=== PATIENT | female | born 1945 | race Caucasian/White ===

== ENCOUNTER 2019-06-17 06:16 | Day surgery (SDC) | payer MEDICARE ==
[~2019-06-17] VITALS: Ht 167.6 cm; Wt 85.9 kg
[2019-06-17] MEDS ORDERED: normal saline 1,000 ML IV SCH (06:45)
[2019-06-17] MEDS ORDERED: diphenhydrAMINE 25mg capsule PO PRN (06:45)
[2019-06-17] MEDS ORDERED: BACL5TAB PO (07:10)
[2019-06-17] MEDS ORDERED: HYDR-4353 PO (07:10)
[2019-06-17] MEDS ORDERED: MULT-1085 PO (07:10)
[2019-06-17] MEDS ORDERED: POTA20TA10 PO (07:10)
[2019-06-17] MEDS ORDERED: GABA-532 PO (07:10)
[2019-06-17] MEDS ORDERED: ASPI-611 PO (07:10)
[2019-06-17] MEDS ORDERED: CITA20TA17 PO (07:10)
[2019-06-17] MEDS ORDERED: FURO-149 PO (07:10)
[2019-06-17] MEDS ORDERED: OCUVITE PO (07:10)
[2019-06-17] MEDS ORDERED: ALPR-624 PO (07:10)
[2019-06-17] MEDS ORDERED: ATOR80TA PO (07:10)
[2019-06-17] MEDS ORDERED: OMEG1CAP13 PO (07:10)
[2019-06-17] MEDS ORDERED: NITR0.4T48 SL (07:10)
[2019-06-17] MEDS ORDERED: fentaNYL/PF 50MCG/1 ML 2ML syringe ONE (07:26)
[2019-06-17] MEDS ORDERED: midazolam 2 mg/2 ml injection ONE (07:26)
[2019-06-17] MEDS ORDERED: iohexol 350MG/ML 100ml bottle IV ONE (07:27)
[2019-06-17] MEDS ORDERED: iohexol 350 MG/ML 50ML vial IV ONE (07:27)
[2019-06-17] MEDS ORDERED: LIDOcaine 1% (10mg/ml)w/preservative injection 20ml MDV ONE (07:27)
[2019-06-17 07:31] LABS: BASOPHILS % (AUTO) 0.4 % (0-1); EOSINOPHILS # (AUTO) 0.1 X10'3 (0-0.9); EOSINOPHILS % (AUTO) 1.9 % (0-6); HEMATOCRIT 31.1 % (35.0-45.0); HEMOGLOBIN 9.7 g/dl (12.0-16.0); LYMPHOCYTES # (AUTO) 0.9 X10'3 (1.1-4.8); LYMPHOCYTES % (AUTO) 18.3 % (21-51); MEAN CORPUSCULAR HEMOGLOBIN 24.8 PG (27.0-31.0); MEAN CORPUSCULAR HGB CONC 31.1 g/dL (33.0-36.5); MEAN CORPUSCULAR VOLUME 79.7 FL (78-98); MEAN PLATELET VOLUME 7.8 FL (7.4-10.4); MONOCYTES # (AUTO) 0.5 X10'3 (0-0.9); NEUTROPHILS # (AUTO) 3.6 X10'3 (1.8-7.7); NEUTROPHILS % (AUTO) 69.4 % (42-75); PLATELET COUNT 242 X10'3 (140-440); RED BLOOD COUNT 3.89 X10'6 (4.20-5.60); RED CELL DISTRIBUTION WIDTH 18.4 % (11.5-14.5); WHITE BLOOD COUNT 5.1 X10'3 (4.5-11.0)
[2019-06-17 07:46] LABS: ANION GAP 8 (8-16); BLOOD UREA NITROGEN 15 MG/DL (7-18); BUN/CREATININE RATIO 17.4 (6.6-38.0); CALCIUM 9.2 MG/DL (8.5-10.1); CHLORIDE 106 MMOL/L (99-107); CREATININE 0.86 MG/DL (0.40-0.90); GLUCOSE 82 MG/DL (70-104); POTASSIUM 4.2 MMOL/L (3.5-5.1); SODIUM 139 MMOL/L (135-145); TOTAL CARBON DIOXIDE 24.8 MMOL/L (24-32); eGFR 65 ML/MIN
[2019-06-17] MEDS ORDERED: iohexol 350 MG/1 ML 200ml bottle ONE (09:08)
[2019-06-17 09:30] VITALS: BP 127/92
[2019-06-17 09:45] VITALS: BP 147/59
[2019-06-17 10:00] VITALS: BP 121/61
[2019-06-17] MEDS ORDERED: normal saline 1000ml 1,000 ML IV SCH (10:00)
[2019-06-17 10:30] VITALS: BP 146/74
[2019-06-17 11:00] VITALS: BP 119/87
[2019-06-17 13:15] VITALS: BP 155/65
== END 2019-06-17 14:00 | disposition home or self-care (01) ==
LOC: SSTAY O 06:16
PROVIDERS: ATTEND Internal Medicine Cardiovascular Disease
DX: I25.118 Atherosclerotic heart disease of native coronary artery with other forms of angina pectoris (principal); E78.5 Hyperlipidemia, unspecified; I10 Essential (primary) hypertension; G47.30 Sleep apnea, unspecified; F32.9 Major depressive disorder, single episode, unspecified; I47.1 Supraventricular tachycardia; Z95.1 Presence of aortocoronary bypass graft; Z79.899 Other long term (current) drug therapy; Z86.19 Personal history of other infectious and parasitic diseases; Z98.890 Other specified postprocedural states; Z90.49 Acquired absence of other specified parts of digestive tract; Z72.89 Other problems related to lifestyle; Z83.3 Family history of diabetes mellitus; Z82.49 Family history of ischemic heart disease and other diseases of the circulatory system
CPT/HCPCS: 36415; 80048; 83735; 85025; 85610; 93005; 93459; 99152; 99153; C1760; C1769; C1894; J1644; J2001; J2250; J3010; J7030; Q0163; Q9967; A4620; A6258

== ENCOUNTER 2019-07-03 09:31 | Day surgery (SDC) | payer MEDICARE ==
[2019-07-03] VITALS (9 sets, daily range): BP systolic 111–166; BP diastolic 55–86
[~2019-07-03] VITALS: Ht 167.6 cm; Wt 84.1 kg
[~2019-07-03 09:31] MED LIST: ALPR-624 PO; ASPI-611 PO; ATOR80TA PO; BACL5TAB PO; CITA20TA17 PO; FURO-149 PO; GABA-532 PO; HYDR-4353 PO; MULT-1085 PO; NITR0.4T48 SL; OCUVITE PO; OMEG1CAP13 PO; POTA20TA10 PO
[2019-07-03] MEDS ORDERED: normal saline 1,000 ML IV SCH (09:55)
[2019-07-03] MEDS ORDERED: diphenhydrAMINE 25mg capsule PO PRN (09:55)
[2019-07-03] MEDS ORDERED: OSC500T PO (10:45)
[2019-07-03] MEDS ORDERED: DOCU-148 PO (10:45)
[2019-07-03 11:01] LABS: BASOPHILS % (AUTO) 0.7 % (0-1); EOSINOPHILS # (AUTO) 0.1 X10'3 (0-0.9); EOSINOPHILS % (AUTO) 3.2 % (0-6); HEMATOCRIT 32.3 % (35.0-45.0); HEMOGLOBIN 10.1 g/dl (12.0-16.0); LYMPHOCYTES # (AUTO) 1.2 X10'3 (1.1-4.8); LYMPHOCYTES % (AUTO) 28.1 % (21-51); MEAN CORPUSCULAR HEMOGLOBIN 24.6 PG (27.0-31.0); MEAN CORPUSCULAR HGB CONC 31.1 g/dL (33.0-36.5); MEAN CORPUSCULAR VOLUME 79.2 FL (78-98); MEAN PLATELET VOLUME 8.1 FL (7.4-10.4); MONOCYTES # (AUTO) 0.4 X10'3 (0-0.9); MONOCYTES % (AUTO) 9.6 % (2-12); NEUTROPHILS # (AUTO) 2.5 X10'3 (1.8-7.7); NEUTROPHILS % (AUTO) 58.4 % (42-75); PLATELET COUNT 257 X10'3 (140-440); RED BLOOD COUNT 4.08 X10'6 (4.20-5.60); RED CELL DISTRIBUTION WIDTH 19.2 % (11.5-14.5); WHITE BLOOD COUNT 4.3 X10'3 (4.5-11.0)
[2019-07-03 11:08] LABS: ALBUMIN 3.3 G/DL (3.4-5.0); ANION GAP 8 (8-16); BLOOD UREA NITROGEN 18 MG/DL (7-18); BUN/CREATININE RATIO 21.2 (6.6-38.0); CALCIUM 9.2 MG/DL (8.5-10.1); CHLORIDE 104 MMOL/L (99-107); CREATININE 0.85 MG/DL (0.40-0.90); GLUCOSE 76 MG/DL (70-104); MAGNESIUM 1.9 MG/DL (1.5-2.4); POTASSIUM 4.2 MMOL/L (3.5-5.1); SODIUM 141 MMOL/L (135-145); TOTAL CARBON DIOXIDE 28.6 MMOL/L (24-32); eGFR 66 ML/MIN
[2019-07-03 11:22] LABS: PLATELET ESTIMATE NORMAL
[2019-07-03 11:23] LABS: ANISOCYTOSIS 2+; HYPOCHROMASIA 1+; MICROCYTOSIS 1+
[2019-07-03] MEDS ORDERED: fentaNYL/PF 50MCG/1 ML 2ML syringe ONE (13:39)
[2019-07-03] MEDS ORDERED: heparin 1,000unit/ml 10ml vial 10 ML ONE (13:39)
[2019-07-03] MEDS ORDERED: midazolam 2 mg/2 ml injection ONE (13:39)
[2019-07-03] MEDS ORDERED: iohexol 350 MG/1 ML 200ml bottle ONE (13:40)
[2019-07-03] MEDS ORDERED: LIDOcaine 1% 30ml preserv. free vial ONE (13:40)
[2019-07-03] MEDS ORDERED: clopidogrel 300mg tablet ONE (14:34)
[2019-07-03] MEDS ORDERED: ondansetron/PF 4mg/2ml inj IV PRN (15:15)
[2019-07-03] MEDS ORDERED: normal saline 1000ml 1,000 ML IV SCH (15:15)
[2019-07-03] MEDS ORDERED: HYDROcodone/acetaminophen 10/325mg tab PO PRN (15:15)
[2019-07-03] MEDS ORDERED: HYDROcodone/acetaminophen 5mg/325mg tablet PO PRN (15:15)
[2019-07-03] MEDS ORDERED: proCHLORperazine 10 MG/2 ml inj IV PRN (15:15)
== END 2019-07-03 18:40 | disposition home or self-care (01) ==
LOC: SSTAY O 09:31
PROVIDERS: ATTEND Internal Medicine Cardiovascular Disease
DX: I25.118 Atherosclerotic heart disease of native coronary artery with other forms of angina pectoris (principal); E78.5 Hyperlipidemia, unspecified; I10 Essential (primary) hypertension; F32.9 Major depressive disorder, single episode, unspecified; G47.30 Sleep apnea, unspecified; I47.1 Supraventricular tachycardia; Z95.1 Presence of aortocoronary bypass graft; Z86.19 Personal history of other infectious and parasitic diseases; Z79.899 Other long term (current) drug therapy; Z79.82 Long term (current) use of aspirin; Z90.49 Acquired absence of other specified parts of digestive tract; Z90.710 Acquired absence of both cervix and uterus; Z98.890 Other specified postprocedural states; Z72.89 Other problems related to lifestyle
CPT/HCPCS: 36415; 80048; 83735; 85025; 93005; 99152; 99153; C1725; C1769; C1874; C1894; C9600; C9601; J1644; J2001; J2250; J3010; J7030; Q0163; Q9967; A4620; A6258; C1760

== ENCOUNTER 2019-12-12 11:02 | Day surgery (SDC) | payer MEDICARE ==
[2019-12-12] VITALS (10 sets, daily range): BP systolic 96–167; BP diastolic 47–80
[~2019-12-12] VITALS: Ht 167.6 cm; Wt 74.8 kg
[~2019-12-12 11:02] MED LIST changes: +DOCU-148 PO; +OSC500T PO
[2019-12-12] MEDS ORDERED: normal saline 1,000 ML IV SCH (11:30)
[2019-12-12] MEDS ORDERED: diphenhydrAMINE 25mg capsule PO PRN (11:30)
[2019-12-12] MEDS ORDERED: CLOP75TA35 PO (11:50)
[2019-12-12] MEDS ORDERED: DICL25TA10 PO (11:50)
[2019-12-12] MEDS ORDERED: DILT-35 PO (11:50)
[2019-12-12] MEDS ORDERED: UBID100C16 PO (11:53)
[2019-12-12] MEDS ORDERED: FERR236T3 PO (11:53)
[2019-12-12] MEDS ORDERED: CHOL100025 PO (11:53)
[2019-12-12] MEDS ORDERED: CALC-1197 PO (11:53)
[2019-12-12 12:45] LABS: BASOPHILS % (AUTO) 0.6 % (0-1); EOSINOPHILS # (AUTO) 0.2 X10'3 (0-0.9); EOSINOPHILS % (AUTO) 3.9 % (0-6); HEMATOCRIT 39.6 % (35.0-45.0); HEMOGLOBIN 12.8 g/dl (12.0-16.0); LYMPHOCYTES # (AUTO) 1.2 X10'3 (1.1-4.8); LYMPHOCYTES % (AUTO) 29.1 % (21-51); MEAN CORPUSCULAR HGB CONC 32.4 g/dL (33.0-36.5); MEAN CORPUSCULAR VOLUME 92.6 FL (78-98); MEAN PLATELET VOLUME 8.6 FL (7.4-10.4); MONOCYTES # (AUTO) 0.4 X10'3 (0-0.9); MONOCYTES % (AUTO) 9.2 % (2-12); NEUTROPHILS # (AUTO) 2.3 X10'3 (1.8-7.7); NEUTROPHILS % (AUTO) 57.2 % (42-75); PLATELET COUNT 169 X10'3 (140-440); RED BLOOD COUNT 4.27 X10'6 (4.20-5.60); RED CELL DISTRIBUTION WIDTH 16.1 % (11.5-14.5)
[2019-12-12 12:51] LABS: ALBUMIN 3.6 G/DL (3.4-5.0); ANION GAP 6 (8-16); BLOOD UREA NITROGEN 18 MG/DL (7-18); BUN/CREATININE RATIO 20.7 (6.6-38.0); CALCIUM 9.1 MG/DL (8.5-10.1); CHLORIDE 104 MMOL/L (99-107); CREATININE 0.87 MG/DL (0.40-0.90); GLUCOSE 87 MG/DL (70-104); MAGNESIUM 1.9 MG/DL (1.5-2.4); POTASSIUM 3.8 MMOL/L (3.5-5.1); SODIUM 140 MMOL/L (135-145); TOTAL CARBON DIOXIDE 30.1 MMOL/L (24-32); eGFR 64 ML/MIN
[2019-12-12] MEDS ORDERED: midazolam 2 mg/2 ml injection ONE (13:21)
[2019-12-12] MEDS ORDERED: fentaNYL/PF 50MCG/1 ML 2ML syringe ONE (13:21)
[2019-12-12] MEDS ORDERED: iohexol 350MG/ML 100ml bottle IV ONE (13:21)
[2019-12-12] MEDS ORDERED: iohexol 350 MG/ML 50ML vial IV ONE ×3 (13:21→14:19)
[2019-12-12] MEDS ORDERED: LIDOcaine 1% (10mg/ml)w/preservative injection 20ml MDV ONE (13:21)
--- NOTE | 2019-12-12 14:48 | NUR ---
pt returned from [employer] in stable condition, [facility] site clear, soft, pedal pulses by doppler. NS @ 200 per MD orders. pt resting comfortably. Addendum: 12/12/19 at 1452 by Shanti Zaragoza RN pt cardiac rhythm sinus maki
[2019-12-12] MEDS ORDERED: HYDROcodone/acetaminophen 5mg/325mg tablet PO PRN (14:50)
[2019-12-12] MEDS ORDERED: ondansetron/PF 4mg/2ml inj IV PRN (14:50)
[2019-12-12] MEDS ORDERED: HYDROcodone/acetaminophen 10/325mg tab PO PRN (14:55)
[2019-12-12] MEDS ORDERED: proCHLORperazine 10 MG/2 ml inj IV PRN (14:55)
--- NOTE | 2019-12-12 18:17 | NUR ---
pt discharged in stable condition. d/c instructions given to pt and pts Tahir. both pt and verbalize understanding. piv scar'gideon, april intact. right groin site soft, non tender, no hematoma, dressing cdi. pedal pulses by doppler. pt voided before discharge. Addendum: 12/12/19 at 1824 by Shanti Zaragoza RN pt ambulated with RN to bathroom using cane.
== END 2019-12-12 18:00 | disposition home or self-care (01) ==
LOC: SSTAY O 11:02
PROVIDERS: ATTEND Internal Medicine Cardiovascular Disease
DX: I25.118 Atherosclerotic heart disease of native coronary artery with other forms of angina pectoris (principal); E78.5 Hyperlipidemia, unspecified; I10 Essential (primary) hypertension; G47.30 Sleep apnea, unspecified; I47.1 Supraventricular tachycardia; F32.9 Major depressive disorder, single episode, unspecified; Z95.5 Presence of coronary angioplasty implant and graft; Z79.899 Other long term (current) drug therapy; Z79.01 Long term (current) use of anticoagulants; Z79.82 Long term (current) use of aspirin; Z86.19 Personal history of other infectious and parasitic diseases
CPT/HCPCS: 36415; 80048; 83735; 85025; 85610; 93005; 93459; 99152; 99153; C1769; C1894; J1644; J2001; J2250; J3010; J7030; Q0163; Q9967; A4620; A6258; C1760

== ENCOUNTER 2020-06-23 13:13 | Outpatient (CLI) | payer MEDICARE ==
[~2020-06-23 13:13] MED LIST changes: +CALC-1215 PO; +CHOL100025 PO; +CLOP75TA35 PO; +DICL25TA10 PO; +DILT-35 PO; +FERR236T3 PO; -OSC500T PO; +UBID100C16 PO
== END 2020-06-23 23:59 | disposition home or self-care (01) ==
LOC: RAD 13:13
DX: R13.12 Dysphagia, oropharyngeal phase (principal); R49.0 Dysphonia; K44.9 Diaphragmatic hernia without obstruction or gangrene
CPT/HCPCS: 74230

== ENCOUNTER 2021-01-28 10:51 | Day surgery (SDC) | payer MEDICARE ==
[~2021-01-28] VITALS: Ht 162.6 cm; Wt 68.8 kg
[2021-01-28] VITALS (7 sets, daily range): BP systolic 105–133; BP diastolic 53–70
[~2021-01-28 10:51] MED LIST changes: +CLOP75TA34 PO; -CLOP75TA35 PO
[2021-01-28] MEDS ORDERED: albumin 25% 100mL bottle x 1 IV PRN (11:20)
[2021-01-28] MEDS ORDERED: BACL-11 PO (11:49)
[2021-01-28] MEDS ORDERED: vitamin c PO (11:52)
[2021-01-28] MEDS ORDERED: ZINC50TA67 PO (11:52)
[2021-01-28] MEDS ORDERED: GLYC2TAB21 PO (11:53)
[2021-01-28] MEDS ORDERED: RILU50TA14 PO (11:53)
[2021-01-28 12:20] LABS: BASOPHILS % (AUTO) 0.7 % (0-1); EOSINOPHILS % (AUTO) 1.4 % (0-6); HEMATOCRIT 33.3 % (35.0-45.0); HEMOGLOBIN 10.9 g/dl (12.0-16.0); LYMPHOCYTES # (AUTO) 0.5 X10'3 (1.1-4.8); LYMPHOCYTES % (AUTO) 16.3 % (21-51); MEAN CORPUSCULAR HGB CONC 32.7 g/dL (33.0-36.5); MEAN CORPUSCULAR VOLUME 94.8 FL (78-98); MEAN PLATELET VOLUME 8.2 FL (7.4-10.4); MONOCYTES # (AUTO) 0.3 X10'3 (0-0.9); MONOCYTES % (AUTO) 8.7 % (2-12); NEUTROPHILS # (AUTO) 2.3 X10'3 (1.8-7.7); NEUTROPHILS % (AUTO) 72.9 % (42-75); PLATELET COUNT 148 X10'3 (140-440); RED BLOOD COUNT 3.51 X10'6 (4.20-5.60); RED CELL DISTRIBUTION WIDTH 16.7 % (11.5-14.5); WHITE BLOOD COUNT 3.1 X10'3 (4.5-11.0)
[2021-01-28 12:26] LABS: ALANINE AMINOTRANSFERASE 23 U/L (12-78); ALBUMIN/GLOBULIN RATIO 0.7 (1.1-1.5); ALKALINE PHOSPHATASE 126 IU/L (46-116); ANION GAP 9 (8-16); ASPARTATE AMINO TRANSFERASE 33 U/L (10-37); BILIRUBIN,TOTAL 0.4 MG/DL (0.1-1.0); BLOOD UREA NITROGEN 20 MG/DL (7-18); CALCIUM 8.8 MG/DL (8.5-10.1); CHLORIDE 107 MMOL/L (99-107); CREATININE 0.74 MG/DL (0.40-0.90); GLUCOSE 95 MG/DL (70-104); POTASSIUM 4.2 MMOL/L (3.5-5.1); SODIUM 144 MMOL/L (135-145); TOTAL CARBON DIOXIDE 27.9 MMOL/L (24-32); TOTAL PROTEIN 7.1 G/DL (6.4-8.2); eGFR 77 ML/MIN
[2021-01-28] MEDS ORDERED: glucagon, human recombinant 1mg kit ONE (13:35)
[2021-01-28] MEDS ORDERED: midazolam 1 mg/ML 2ml injection ONE ×2 (13:35→14:45)
[2021-01-28] MEDS ORDERED: fentaNYL/PF 50MCG/1 ML 2ML syringe ONE ×2 (13:36→14:46)
[2021-01-28] MEDS ORDERED: LIDOcaine 1%/PF 5ML 10 MG/ML VIAL ONE (13:38)
[2021-01-28] MEDS ORDERED: HYDROcodone/acetaminophen 5mg/325mg tablet PO PRN (15:30)
== END 2021-01-28 16:40 | disposition home or self-care (01) ==
LOC: SSTAY O 10:51
PROVIDERS: ATTEND Radiology Vascular & Interventional Radiology
DX: R13.19 Other dysphagia (principal); K44.9 Diaphragmatic hernia without obstruction or gangrene; G12.21 Amyotrophic lateral sclerosis; I25.10 Atherosclerotic heart disease of native coronary artery without angina pectoris; E78.5 Hyperlipidemia, unspecified; D50.9 Iron deficiency anemia, unspecified; I10 Essential (primary) hypertension; F41.9 Anxiety disorder, unspecified; Z95.1 Presence of aortocoronary bypass graft; Z79.899 Other long term (current) drug therapy; Z79.82 Long term (current) use of aspirin; Z86.19 Personal history of other infectious and parasitic diseases; Z72.89 Other problems related to lifestyle
CPT/HCPCS: 36415; 49440; 74150; 80053; 85025; 99152; 99153; C1769; J1610; J2250; J3010

== ENCOUNTER 2021-02-28 12:20 | Observation (INO) | payer MEDICARE ==
[2021-02-22 11:56] LABS: BASOPHILS % (AUTO) 0.4 % (0-1); EOSINOPHILS # (AUTO) 0.1 X10'3 (0-0.9); EOSINOPHILS % (AUTO) 1.5 % (0-6); LYMPHOCYTES # (AUTO) 0.6 X10'3 (1.1-4.8); MEAN CORPUSCULAR HEMOGLOBIN 31.4 PG (27.0-31.0); MEAN CORPUSCULAR HGB CONC 32.7 g/dL (33.0-36.5); MEAN CORPUSCULAR VOLUME 95.8 FL (78-98); MEAN PLATELET VOLUME 8.6 FL (7.4-10.4); MONOCYTES # (AUTO) 0.4 X10'3 (0-0.9); MONOCYTES % (AUTO) 9.5 % (2-12); NEUTROPHILS # (AUTO) 3.1 X10'3 (1.8-7.7); NEUTROPHILS % (AUTO) 74.6 % (42-75); PRE OP HEMATOCRIT 36.7 % (35.0-45.0); PRE OP PLATELET COUNT 103 X10'3 (140-440); RED BLOOD COUNT 3.83 X10'6 (4.20-5.60); RED CELL DISTRIBUTION WIDTH 16.1 % (11.5-14.5)
[2021-02-22 12:09] LABS: ALBUMIN 3.5 G/DL (3.4-5.0); ALBUMIN/GLOBULIN RATIO 0.9 (1.1-1.5); ALKALINE PHOSPHATASE 127 IU/L (46-116); BLOOD UREA NITROGEN 19 MG/DL (7-18); BUN/CREATININE RATIO 26.4 (6.6-38.0); CALCIUM 9.1 MG/DL (8.5-10.1); CHLORIDE 104 MMOL/L (99-107); CREATININE 0.72 MG/DL (0.40-0.90); PRE OP ALT 27 U/L (30-65); PRE OP ANION GAP 10 (8-16); PRE OP AST 38 U/L (10-37); PRE OP BILIRUB, TOTAL 0.5 MG/DL (0.0-1.0); PRE OP GLUCOSE 103 MG/DL (70-104); PRE OP POTASSIUM 3.8 MMOL/L (3.4-5.1); PRE OP SODIUM 142 MMOL/L (135-145); TOTAL CARBON DIOXIDE 28.4 MMOL/L (24-32); TOTAL PROTEIN 7.4 G/DL (6.4-8.2); eGFR 79 ML/MIN
[2021-02-22 12:15] LABS: PRE OP PROTIME 10.8 SECONDS (9.0-12.0)
[~2021-02-28] VITALS: Ht 162.6 cm; Wt 66.3 kg
[2021-02-28] VITALS (24 sets, daily range): BP systolic 105–150; BP diastolic 58–82
[~2021-02-28 12:20] MED LIST changes: +AMIT-189 PO; +BACL-11 PO; -BACL5TAB PO; -CALC-1215 PO; -CHOL100025 PO; +FISH12002 PO; +GLYC2TAB21 PO; +LIDOcaine 0.5% (5mg/ml) 50ml vial ONE; -NITR0.4T48 SL; +NITR0.4T51 SL; +OSC500T PO; +RILU50TA14 PO; +ZINC50TA67 PO; +cefazolin/dext.iso 2gm/100ml IV ONE; +famotidine 20mg tablet PO ONE; +ringers solution, lacted 1,000 ML IV SCH; +vitamin c PO
[2021-02-28] MEDS ORDERED: sevoflurane 250ml liquid IH ONE (14:01)
[2021-02-28] MEDS ORDERED: ePHEDrine 50MG/ML INJ. ONE (14:01)
[2021-02-28] MEDS ORDERED: fentaNYL/PF 50MCG/1 ML 2ML syringe ONE (14:05)
[2021-02-28] MEDS ORDERED: propofol inj 20 ML IV ONE (14:18)
[2021-02-28] MEDS ORDERED: succinylcholine 20mg/ml inj IV ONE (14:18)
--- NOTE | 2021-02-28 14:48 | NUR ---
Received from OR via , accompanied by Anesthesiologist DR STANFORD and report given by Anesthesiolgist. PT PRESENTS WITH 20G LEFT HAND, 20 [employer] G TUBE. VSS. Addendum: 02/28/21 at 1456 by Vanesa Johns RN, RN Amended: Links added.
[2021-02-28] MEDS ORDERED: ALPRAZolam 0.5mg tablet PO PRN (15:40)
[2021-02-28] MEDS ORDERED: docusate sod 100mg capsule PO PRN (15:40)
[2021-02-28] MEDS ORDERED: acetaminophen 325mg tablet PO PRN (15:55)
[2021-02-28] MEDS ORDERED: ondansetron/PF 4mg/2ml inj IV PRN (15:55)
[2021-02-28] MEDS ORDERED: mag hydrox/Alum hydrox/simeth 30ml oral suspension PO PRN (15:55)
[2021-02-28] MEDS ORDERED: magnesium hydroxide 30ml (MOM) UD suspension PO PRN (15:55)
--- NOTE | 2021-02-28 16:44 | NUR ---
DR LOPEZ AT BEDSIDE EVALUATING PT. Addendum: 02/28/21 at 1644 by Vanesa Aguirre - SANDEEP RN Amended: Links added.
--- NOTE | 2021-02-28 17:08 | NUR ---
PATIENT TAKEN TO ROOM WITH ALL BELONGINGS, C-PAP AND 1 BAG, PT HOOKED UP TO MONITORS IN ROOM AND REPORT GIVEN TO DARIAN HOPKINS WHO HAS TAKEN OVER PATIENT CARE. Addendum: 02/28/21 at 1731 by Vanesa Johns RN, RN Amended: Links added.
--- NOTE | 2021-02-28 17:30 | NUR ---
Paged Dr. Chawla PAGER ID: [phone] MESSAGE: Surgical Tip HOPKINS ext [phone]. RE: Xiomy Nicolas. Patient just got here from [facility]. She has own CPAP, can we have order to use it at night?
--- NOTE | 2021-02-28 17:34 | NUR ---
Paged Dr. Chawla PAGER ID: [phone] MESSAGE: Dylan Whelan RN ext [phone]. RE: Xiomy Nicolas. Patient in a lot of pain, she only has Morphine 1mg IV Q4hrs PRN for moderate pain
[2021-02-28] MEDS: morphine 2 MG/ML inj. syringe IV PRN ×2 (17:45→21:44)
[2021-02-28] MEDS: pantoprazole 40 MG vial IV SCH (17:45)
--- NOTE | 2021-02-28 18:25 | NUR ---
Patient in room [facility]. I have received report from Tip HOPKINS and had the opportunity to ask questions and assume patient care.
[2021-02-28] MEDS ORDERED: potassium Cl 20 mEq SR tablet PO SCH (20:00)
[2021-02-28] MEDS ORDERED: RILUZOLE 50MG TABLET PO SCH (20:00)
[2021-02-28] MEDS ORDERED: docusate sod 100mg capsule PO SCH (20:00)
[2021-02-28] MEDS ORDERED: non-formulary drug (Ubidecarenone (Coq-10) 100 MG) PO SCH (20:00)
[2021-02-28] MEDS: heparin, porcine 5000 units/ml vial SQ SCH (20:00)
[2021-02-28] MEDS ORDERED: gabapentin 300mg capsule PO SCH (21:00)
[2021-02-28] MEDS ORDERED: baclofen 10mg tablet PO SCH (21:00)
[2021-02-28] MEDS ORDERED: amitriptyline 10mg tablet PO SCH (21:00)
[2021-02-28] MEDS ORDERED: calcium carbonate 500mg tablet PO SCH (21:00)
[2021-02-28] MEDS ORDERED: atorvastatin 20mg tablet PO SCH (21:00)
[2021-02-28] MEDS ORDERED: non-formulary drug (Fish Oil/Borage/Flax/Om3,6,9#1 (Omega 3-6-9 1,200 mg Softgel) 1 CAP) PO SCH (21:00)
[2021-02-28] MEDS: normal saline 1000ml 1,000 ML IV SCH (21:48)
[2021-03-01] MEDS ORDERED: HYDROcodone/acetaminophen 10/325mg tab PO PRN
--- NOTE | 2021-03-01 00:24 | NUR ---
Called mD for an order to straight cath as patients bladder scan over 965cc.
[2021-03-01 00:30] VITALS: BP 135/81
--- NOTE | 2021-03-01 00:30 | NUR ---
Straight cath for 1100 yellow urine. Pt. tolerated well.
[2021-03-01] MEDS ORDERED: ALPRAZolam 0.5mg tablet OGT PRN (03:15)
[2021-03-01] MEDS ORDERED: amitriptyline 10mg tablet OGT SCH (03:16)
[2021-03-01] MEDS ORDERED: atorvastatin 20mg tablet GT SCH (03:17)
[2021-03-01] MEDS ORDERED: mag hydrox/Alum hydrox/simeth 30ml oral suspension GT PRN (03:20)
[2021-03-01] MEDS ORDERED: docusate sodium 100mg/10ml UD cup GT PRN (03:20)
[2021-03-01] MEDS ORDERED: magnesium hydroxide 30ml (MOM) UD suspension GT PRN (03:21)
[2021-03-01] MEDS ORDERED: acetaminophen 325mg/10.15ml oral unit dose solution GT PRN (03:25)
[2021-03-01] MEDS: morphine 2 MG/ML inj. syringe IV PRN ×2 (03:49→20:13)
--- NOTE | 2021-03-01 06:30 | NUR ---
Problems reprioritized. Patient report given, questions answered & plan of care reviewed with Precious HOPKINS.
--- NOTE | 2021-03-01 06:45 | NUR ---
Patient in room [facility]. I have received report from SANDEEP ANDERSON and had the opportunity to ask questions and assume patient care.
[2021-03-01 07:00] VITALS: BP 139/75
[2021-03-01 07:24] LABS: BASOPHILS % (AUTO) 0.3 % (0-1); EOSINOPHILS % (AUTO) 0.1 % (0-6); HEMATOCRIT 38.5 % (35.0-45.0); HEMOGLOBIN 12.4 g/dl (12.0-16.0); LYMPHOCYTES # (AUTO) 0.3 X10'3 (1.1-4.8); LYMPHOCYTES % (AUTO) 7.3 % (21-51); MEAN CORPUSCULAR HEMOGLOBIN 30.6 PG (27.0-31.0); MEAN CORPUSCULAR HGB CONC 32.1 g/dL (33.0-36.5); MEAN PLATELET VOLUME 8.9 FL (7.4-10.4); MONOCYTES # (AUTO) 0.3 X10'3 (0-0.9); MONOCYTES % (AUTO) 6.8 % (2-12); NEUTROPHILS # (AUTO) 3.9 X10'3 (1.8-7.7); NEUTROPHILS % (AUTO) 85.5 % (42-75); PLATELET COUNT 92 X10'3 (140-440); RED BLOOD COUNT 4.05 X10'6 (4.20-5.60); RED CELL DISTRIBUTION WIDTH 16.4 % (11.5-14.5); WHITE BLOOD COUNT 4.5 X10'3 (4.5-11.0)
[2021-03-01 07:29] LABS: ALBUMIN 3.1 G/DL (3.4-5.0); ANION GAP 12 (8-16); BLOOD UREA NITROGEN 17 MG/DL (7-18); BUN/CREATININE RATIO 29.3 (6.6-38.0); CALCIUM 8.7 MG/DL (8.5-10.1); CHLORIDE 106 MMOL/L (99-107); CREATININE 0.58 MG/DL (0.40-0.90); GLUCOSE 128 MG/DL (70-104); POTASSIUM 4.1 MMOL/L (3.5-5.1); SODIUM 141 MMOL/L (135-145); eGFR > 90 ML/MIN
[2021-03-01] MEDS: heparin, porcine 5000 units/ml vial SQ SCH ×2 (08:00→20:00)
[2021-03-01] MEDS ORDERED: beta-carotene(A) w/C & E + minerals tab PO SCH (08:00)
[2021-03-01] MEDS ORDERED: OMEGA-3/DHA/EPA/FISH OIL 1 EACH CAPSULE.DR PO SCH (08:00)
[2021-03-01] MEDS ORDERED: non-formulary drug (Zinc 1 TAB) PO SCH (08:00)
[2021-03-01] MEDS ORDERED: aspirin 81mg tab.chew GT SCH (08:00)
[2021-03-01] MEDS: RILUZOLE 50MG TABLET OGT SCH ×2 (08:00→20:00)
[2021-03-01] MEDS ORDERED: furosemide 40mg tablet OGT SCH (08:00)
[2021-03-01] MEDS: baclofen 10mg tablet OGT SCH ×2 (08:00→13:19)
[2021-03-01] MEDS ORDERED: clopidogrel 75mg tablet OGT SCH (08:00)
[2021-03-01] MEDS ORDERED: citalopram 20mg tablet OGT SCH (08:00)
[2021-03-01] MEDS ORDERED: ascorbic acid 500mg tablet OGT SCH (08:00)
--- NOTE | 2021-03-01 08:15 | NUR ---
Per dietitian Ingrid, she cannot complete her nutrition recommendation if there is active order for tube feeding. She requested to have the TF order inactive/cancel the order. I cancelled the active TF order temporarily.
[2021-03-01] MEDS: normal saline 1000ml 1,000 ML IV SCH (08:35)
--- NOTE | 2021-03-01 09:53 | NUR ---
TF consult: Pt with h/o ALS admitted for G-tube placement d/t oropharyngeal dysphagia. Pt started on Jevity 1.2 at 30 mL/hr post-op pending RD availability to make further TF recommendations. RD has updated recommendations in EMR and d/w RN, see below. No documented LBM, pt receiving routine bowel care. Will continue to follow closely. Recommendations: 1) Continuous TF via G-tube using Jevity 1.2 with goal rate of 60 mL/hr to provide 1440 mL total volume/day, 1728 kcal, 80 g protein, and 1162 mL water 2) Additional 100 mL water flush Q4H; monitor serum Na and adjust recommendations as appropriate 3) Prealbumin q Sunday/ 4) Daily weights 5) Routine bowel care 6) BSS with ST IF planning on advancing PO diet HOME BOLUS TF RECS: 1) Bolus TF via G-tube QID using Jevity 1.5 or equivalent to begin at 150 mL bolus and advance by 50 mL each bolus as tolerated to goal rate of 300 mL bolus 2) Additional 100 mL water flush before and after each bolus feed 3) Outpatient RD to titrate to goal rate and adjust recommendations as appropriate based on patient's estimated nutrient needs Addendum: 03/01/21 at [address] Amended: Links added.
[2021-03-01] MEDS: POTASSIUM BICARB 20meq eff tab 20 MEQ TABLET.EFF GT SCH ×2 (09:56→20:16)
[2021-03-01] MEDS: gabapentin 300mg capsule OGT SCH ×3 (09:57→20:15)
[2021-03-01] MEDS: MULTIVIT-MIN/FERROUS GLUCONATE 9 MG/15 ML LIQUID GT SCH (09:57)
[2021-03-01] MEDS: docusate sodium 100mg/10ml UD cup GT SCH ×2 (09:57→20:16)
[2021-03-01] MEDS: pantoprazole 40 MG vial IV SCH ×3 (09:58→20:28)
[2021-03-01 11:00] VITALS: BP 147/78
[2021-03-01] MEDS ORDERED: bisacodyl 10mg suppository rectal RC STA (12:43)
[2021-03-01] MEDS ORDERED: ALPRAZolam 0.5mg tablet PEG PRN (15:42)
[2021-03-01] MEDS ORDERED: beta-carotene(A) w/C & E + minerals tab PEG SCH (15:42)
[2021-03-01] MEDS ORDERED: ascorbic acid 500mg tablet PEG SCH (15:42)
[2021-03-01] MEDS ORDERED: amitriptyline 10mg tablet PEG SCH (15:42)
[2021-03-01] MEDS ORDERED: furosemide 40mg tablet PEG SCH (15:43)
[2021-03-01] MEDS ORDERED: citalopram 20mg tablet PEG SCH (15:43)
[2021-03-01] MEDS ORDERED: HYDROcodone/acetaminophen 7.5MG/325MG per 15ml UD CUP PEG PRN (15:50)
[2021-03-01 18:00] VITALS: BP 161/78
--- NOTE | 2021-03-01 18:45 | NUR ---
Problems reprioritized. Patient report given, questions answered & plan of care reviewed with SANDEEP ANDERSON.
--- NOTE | 2021-03-01 18:45 | NUR ---
Patient in room [facility]. I have received report from Precious HOPKINS and had the opportunity to ask questions and assume patient care.
--- NOTE | 2021-03-01 18:45 | NUR ---
PATIENT STATED HE COULD BRING PATIENT'S OWN MEDICATION TOMORROW, PASSED ON TO ON COMING NURSE
[2021-03-01] MEDS: baclofen 10mg tablet PEG SCH (20:15)
[2021-03-02] VITALS: BP 163/93
[2021-03-02] MEDS: morphine 2 MG/ML inj. syringe IV PRN ×2 (00:43→05:46)
[2021-03-02] MEDS: normal saline 1000ml 1,000 ML IV SCH (02:11)
--- NOTE | 2021-03-02 06:20 | NUR ---
Problems reprioritized. Patient report given, questions answered & plan of care reviewed with Gael HOPKINS.
[2021-03-02 06:28] LABS: BASOPHILS % (AUTO) 0.1 % (0-1); EOSINOPHILS % (AUTO) 0.6 % (0-6); HEMOGLOBIN 12.6 g/dl (12.0-16.0); LYMPHOCYTES # (AUTO) 0.3 X10'3 (1.1-4.8); LYMPHOCYTES % (AUTO) 5.4 % (21-51); MEAN CORPUSCULAR HEMOGLOBIN 30.6 PG (27.0-31.0); MEAN CORPUSCULAR HGB CONC 32.3 g/dL (33.0-36.5); MEAN CORPUSCULAR VOLUME 94.6 FL (78-98); MEAN PLATELET VOLUME 8.8 FL (7.4-10.4); MONOCYTES # (AUTO) 0.4 X10'3 (0-0.9); MONOCYTES % (AUTO) 8.3 % (2-12); NEUTROPHILS # (AUTO) 4.4 X10'3 (1.8-7.7); NEUTROPHILS % (AUTO) 85.6 % (42-75); PLATELET COUNT 109 X10'3 (140-440); RED BLOOD COUNT 4.12 X10'6 (4.20-5.60); RED CELL DISTRIBUTION WIDTH 16.3 % (11.5-14.5); WHITE BLOOD COUNT 5.2 X10'3 (4.5-11.0)
[2021-03-02 06:50] LABS: ANION GAP 7 (8-16); BLOOD UREA NITROGEN 11 MG/DL (7-18); BUN/CREATININE RATIO 18.6 (6.6-38.0); CALCIUM 8.7 MG/DL (8.5-10.1); CHLORIDE 106 MMOL/L (99-107); CREATININE 0.59 MG/DL (0.40-0.90); GLUCOSE 157 MG/DL (70-104); SODIUM 142 MMOL/L (135-145); TOTAL CARBON DIOXIDE 29.3 MMOL/L (24-32); eGFR > 90 ML/MIN
[2021-03-02] MEDS: RILUZOLE 50MG TABLET OGT SCH (08:00)
[2021-03-02 08:21] VITALS: BP 170/90
[2021-03-02] MEDS: docusate sodium 100mg/10ml UD cup GT SCH (08:36)
[2021-03-02] MEDS: MULTIVIT-MIN/FERROUS GLUCONATE 9 MG/15 ML LIQUID GT SCH (08:36)
[2021-03-02] MEDS: gabapentin 300mg capsule OGT SCH ×2 (08:37→12:40)
[2021-03-02] MEDS: baclofen 10mg tablet PEG SCH ×2 (08:37→12:40)
[2021-03-02] MEDS: POTASSIUM BICARB 20meq eff tab 20 MEQ TABLET.EFF GT SCH (08:37)
[2021-03-02] MEDS: heparin, porcine 5000 units/ml vial SQ SCH (08:38)
[2021-03-02] MEDS: pantoprazole 40 MG vial IV SCH (08:58)
--- NOTE | 2021-03-02 09:36 | NUR ---
EDUCATED PATIENTS FAMILY ON BOLUS TUBE FEEDING. I DEMONSTRATED HOW TO USE GRAVITY TO ALLOW FEEDING TO GRADUALLY FILL STOMACH BY WAY OF 60 ML SYRINGE. I EDUCATED THAT THE PATIENT WOULD BE FED THIS WAY 4 TO 5 TIMES A DAY BASED ON DRS ORDERS. I ALSO TAUGHT AND DEMONSTRATED HOW TO CHECK FOR RESIDUALS AND THEIR MEANING. I ALSO BRIEFLY WENT OVER CONTINUOUS TUBE FEEDING.
[2021-03-02 11:07] VITALS: BP 142/78
[2021-03-03] MEDS ORDERED: ferrous sulfate 300mg/5ml UD oral liquid PEG SCH (08:00)
== END 2021-03-02 16:55 | disposition home health service (06) ==
LOC: PAS 12:20 → SUR 3N 15:55
PROVIDERS: ADMIT Family Medicine; ATTEND Internal Medicine Gastroenterology
DX: R13.10 Dysphagia, unspecified (principal); G12.21 Amyotrophic lateral sclerosis; I25.10 Atherosclerotic heart disease of native coronary artery without angina pectoris; I10 Essential (primary) hypertension; F32.9 Major depressive disorder, single episode, unspecified; F41.9 Anxiety disorder, unspecified; E78.5 Hyperlipidemia, unspecified; Z79.82 Long term (current) use of aspirin; Z79.899 Other long term (current) drug therapy; Z88.8 Allergy status to other drugs, medicaments and biological substances; Z79.02 Long term (current) use of antithrombotics/antiplatelets; Z91.013 Allergy to seafood; Z93.1 Gastrostomy status; Z95.1 Presence of aortocoronary bypass graft
CPT/HCPCS: 36415; 43246; 71046; 80048; 80053; 82948; 85025; 85610; 85730; 87081; 93005; 96361; 96372; 96374; 96375; 96376; 97116; 97161; 97530; B4087; C9113; G0378; J0330; J1644; J2001; J2270; J2704; J3010; J7030; A4618; J7120